=== PATIENT | female | born 1970 | race African-American/Black ===

== ENCOUNTER → 2016-12-11 | Outpatient (CLI) | payer OTHER ==
[~2016-12-11] MED LIST: DULERA 100 MCG/13 GM INH; NOHOMEMEDICATIONS; NORVASC5 MG PO; VENTOLIN HFA 1818 GM INH
== END ==
LOC: ULTRA 07:33
DX: I15.0 Renovascular hypertension (principal); K80.20 Calculus of gallbladder without cholecystitis without obstruction

== ENCOUNTER → 2018-02-05 | Outpatient (CLI) | payer BC, OTHER | LOC: RAD 10:30 | DX: M47.896 Other spondylosis, lumbar region (principal) ==

== ENCOUNTER → 2019-09-04 | Outpatient (CLI) | payer BC, OTHER ==
--- NOTE | 2019-09-17 17:36 | SLE ---
[facility] [place] [address] POLYSOMNOGRAPHY STUDY Name: RENZO CHOKENDALL WRIGHT Room #: REG [facility]#: [id number] Admission: 09/04/19 Attend Phys: Yoel Samuels MD Discharge: Date of : 72 Report #: [id number] THIS REPORT FOR: //name// CC: Yoel PINEDA DATE OF SERVICE: 09/04/2019 ATTENDING PHYSICIAN: EDWIN Aguilera The patient is 49-year-old who weighs 258 pounds with a BMI of 48.7. The patient's Winslow score was 11. The patient underwent diagnostic sleep study performed at [facility]. During the night study, the patient spent 355 minutes in bed and slept for 265 minutes with a sleep efficiency of 74%. Sleep latency was 24 minutes with absent REM sleep. Overall, sleep architecture showed normal stage 1 sleep, increased stage 2 sleep, absent slow wave and absent REM sleep. During the night of the study, the patient had 33 obstructive apneas, no mixed or central apneas and 35 hypopneas. The patient's apnea hypopnea index was 15.4 per hour. REM sleep was not observed. The patient's supine AHI was 29 per hour. EKG monitoring revealed an average heart rate of 76 beats per minute. No sustained arrhythmias observed. No clinically significant PLM seen. Nocturnal oximetry study revealed an average oxygen saturation of 91% with the lowest of 76%. 69 minutes were spent in oxygen saturation of less than 89%. Due to low AHI, the patient did not meet the split night criteria for CPAP initiation. IMPRESSION: 1. Moderate sleep apnea-hypopnea syndrome at an AHI of 15.4 per hour. Absence of REM sleep can underestimate the severity of sleep apnea. 2. Nocturnal hypoxia secondary to obstructive sleep apnea. 3. No clinically significant periodic limb movements. RECOMMENDATIONS: 1. The patient would benefit from treatment of sleep apnea with CPAP. Alternate treatment option would include use of an oral appliance as recommended by the dentist. [facility] [address] [place] [address] POLYSOMNOGRAPHY STUDY Name: KENDALL ROMEO Room #: REG [facility]#: [id number] Admission: 09/04/19 Attend Phys: Yoel Samuels MD Discharge: Date of : 72 Report #: [id number] 2. Once the patient is optimally treated, then follow up in 4-6 weeks to assess compliance with treatment and to document clinical improvement. 3. Weight loss is strongly advised. 4. Avoid [employer] depressants. 5. Cautioned regarding driving until symptoms of sleep apnea resolve with the above recommendations. <ELECTRONICALLY SIGNED> By: Bradley Coleman MD 09/17/19 [id number] Bradley Coleman MD /nt
== END ==
LOC: SLEEPLAB 11:26
DX: G47.33 Obstructive sleep apnea (adult) (pediatric) (principal); G47.30 Sleep apnea, unspecified; R09.02 Hypoxemia; J45.909 Unspecified asthma, uncomplicated

== ENCOUNTER → 2019-10-01 | Outpatient (CLI) | payer BC, OTHER | LOC: RAD 14:13 | DX: J45.30 Mild persistent asthma, uncomplicated (principal) ==

== ENCOUNTER → 2021-11-02 | Outpatient (CLI) | payer BC, OTHER | LOC: RAD 12:40 | PROVIDERS: ATTEND Internal Medicine Pulmonary Disease | DX: J45.40 Moderate persistent asthma, uncomplicated (principal) ==